=== PATIENT | female | born 1995 ===

== ENCOUNTER 2021-02-04 12:59 | Inpatient (IN) ==
[2021-02-04] MEDS ORDERED: LACTATED RINGERS 500 ML IV PRN (13:47)
[2021-02-04] MEDS: LACTATED RINGERS 1,000 ML IV SCH ×2 (13:48→19:53)
[2021-02-04 14:13] LABS: Basophils # 0.1 10*3/uL (0.0-0.2); Basophils % 0.4 % (0.0-0.8); Eosinophils # 0.1 10*3/uL (0.0-0.87); Eosinophils % 0.9 % (0.00-10.9); Hematocrit 34.5 VOL% (35.7-47.0); Hemoglobin 11.9 GM/DL (12.0-16.0); Immature Granulocytes % 0.8 %; Lymphocytes # 2.2 10*3/uL (1.4-4.0); Lymphocytes % 16.4 % (21.3-54.2); Mean Corpuscular HGB Conc 34.5 GM/DL (32-36); Mean Corpuscular Volume 92.5 FL (87-102); Mean Platelet Volume 10.6 FL (9.6-12.0); Monocytes % 6.6 % (1.7-12.7); Neutrophils % 74.9 % (38.7-73.9); Platelet Count 249 T/CUMM (130-400); Red Blood Count 3.73 MC/CUMM (3.8-5.5); Red Cell Distribution Width 12.7 % (9.3-17.3); White Blood Count 13.2 T/CUMM (4-12)
[2021-02-04 14:24] LABS: INR 0.9; PT Patient Result 9.9 SECS (9.8-11.9); Partial Thromboplastin Time 23.1 SECS (23.9-33.8)
[2021-02-04 14:38] LABS: Alanine Aminotransferase 15 U/L (13-56); Albumin 2.8 G/DL (3.4-5.0); Alkaline Phosphatase 191 U/L (45-117); Aspartate Amino Transferase 18 U/L (0-37); Bilirubin,Direct < 0.100 MG/DL (0.0-0.20); Bilirubin,Total < 0.39 MG/DL (0.2-1.0); Blood Urea Nitrogen 10 MG/DL (7-18); Calcium 9.5 MG/DL (8.5-10.1); Carbon Dioxide 23 MMOL/L (21-32); Estimated Glom Filtration Rate 112 ML/MIN; Glucose 85 MG/DL (74-106); Sodium 136 MMOL/L (136-145); Uric Acid 5.3 MG/DL (2.6-6.0)
[2021-02-04 17:00] LABS: Bacteria,Urine Occasional /HPF (Few); Bilirubin,Urine Negative (Negative); Blood, Urine Small mg/dL (Negative); Glucose,Urine (UA) Negative (Negative); Ketones,Urine Negative (Negative); Mucus,Urine Occasional /LPF (Occasional); Nitrite,Urine Negative (Negative); Protein,Urine Negative; Squamous Epithelial Cell,Urine Occasional /HPF (0-10); Urine Appearance CLEAR (Clear); Urine Color Colorless (Yellow); Urine Specific Gravity 1.004 (1.001-1.035); Urine Urobilinogen < 2.0 EU/DL (0.2-1.0)
[2021-02-04 18:36] LABS: Protein/Creatinine Ratio,Urine 0.3 RATIO
[2021-02-05] MEDS ORDERED: FAMOTIDINE 20 MG/2 ML VIAL IV ONE ×2 (00:25→09:12)
[2021-02-05] MEDS: ONDANSETRON 4 MG/2 ML VIAL IV PRN ×2 (00:45→12:37)
[2021-02-05] MEDS ORDERED: OXYTOCIN/LR 20 UNIT/1,000 ML BAG IV SCH (08:00)
[2021-02-05] MEDS ORDERED: OXYTOCIN/LR 20 UNIT/1,000 ML BAG IV ONE ×2 (09:01→16:27)
[2021-02-05] MEDS ORDERED: LACTATED RINGERS 250 ML IV PRN (09:12)
[2021-02-05] MEDS ORDERED: CITRIC ACID/SODIUM CITRATE 30 ML UDCUP PO ONE (09:12)
[2021-02-05] MEDS ORDERED: diphenhydrAMINE 50 MG/1 ML VIAL IV PRN ×2 (09:12)
[2021-02-05] MEDS ORDERED: ePHEDrine 50 MG/ML VIAL IV PRN (09:12)
[2021-02-05] MEDS ORDERED: NALOXONE 0.4 MG/ML VIAL IV PRN (09:12)
[2021-02-05] MEDS ORDERED: LACTATED RINGERS 1,000 ML IV ONE (09:12)
[2021-02-05] MEDS ORDERED: PROMETHAZINE 25 MG/1 ML VIAL IM ONE (09:12)
[2021-02-05] MEDS ORDERED: hydrOXYzine HCL 25 MG/1 ML VIAL IM PRN (09:12)
[2021-02-05] MEDS ORDERED: fentaNYL 2 MCG/ROPIV 0.2% EPID 100 ML EPIDURAL SCH (09:30)
[2021-02-05] MEDS ORDERED: LACTATED RINGERS 1,000 ML IV SCH (09:30)
[2021-02-05] MEDS ORDERED: METHYLERGONOVINE 0.2 MG/1 ML AMP ONE (13:54)
[2021-02-05] MEDS ORDERED: TRANEXAMIC ACID 1,000 MG/10 ML VIAL ONE (13:54)
[2021-02-05] MEDS ORDERED: CARBOPROST TROMETHAMINE 250 MCG/ML AMP IM ONE (13:54)
[2021-02-05] MEDS ORDERED: miSOPROStoL 200 MCG TABLET ONE (13:54)
[2021-02-05] MEDS ORDERED: LIDOCAINE 1% 50 ML VIAL ONE (15:33)
[2021-02-05 16:04] LABS: Cord Arterial Blood HCO3 20.7 MMOL/L
[2021-02-05 16:08] LABS: Cord Venous Blood HCO3 20.8 MMOL/L; Cord Venous Blood PCO2 46.2 MMHG; Cord Venous Blood PO2 17.5
[2021-02-05] MEDS ORDERED: LANOLIN 50% CREAM 0.3 OZ TUBE TOP PRN (16:27)
[2021-02-05] MEDS ORDERED: HYDROCORTISONE 2.5% RECTAL CREAM 30 GM TUBE TOP PRN (16:27)
[2021-02-05] MEDS ORDERED: DIPH/TET/ACEL PERT BOOSTER VACCINE 0.5 ML VIAL IM ONE (16:27)
[2021-02-05] MEDS ORDERED: ONDANSETRON 4 MG/2 ML VIAL IV PRN (16:27)
[2021-02-05] MEDS ORDERED: ACETAMINOPHEN 325 MG TABLET PO PRN (16:27)
[2021-02-05] MEDS ORDERED: oxyCODONE/ACETAMINOPHEN 5-325 MG TABLET PO PRN (16:27)
[2021-02-05] MEDS ORDERED: BISACODYL 10 MG SUPP RECTAL PRN (16:27)
[2021-02-05] MEDS ORDERED: RHO(D) IMMUNE GLOBULIN 300 MCG SYRINGE IM ONE (16:27)
[2021-02-05] MEDS ORDERED: WITCH HAZEL PADS 100/JAR TOP PRN (16:27)
[2021-02-05] MEDS ORDERED: MEASLES/MUMPS/RUBELLA VACCINE 0.5 ML VIAL SUBCUT ONE (16:27)
[2021-02-05] MEDS ORDERED: BENZOCAINE 20%/MENTHOL 0.5% SPRAY 56 GM CAN TOP PRN (16:27)
[2021-02-05] MEDS: IBUPROFEN 800 MG TABLET PO PRN (17:05)
[2021-02-05] MEDS: DOCUSATE SODIUM 100 MG CAPSULE PO SCH (21:13)
[2021-02-06] MEDS: IBUPROFEN 800 MG TABLET PO PRN (06:42)
[2021-02-06 06:52] LABS: Basophils % 0.2 % (0.0-0.8); Eosinophils # 0.1 10*3/uL (0.0-0.87); Eosinophils % 0.7 % (0.00-10.9); Hematocrit 31.1 VOL% (35.7-47.0); Hemoglobin 10.5 GM/DL (12.0-16.0); Immature Granulocytes % 0.9 %; Immature Granulocytes Absolute 0.14 #; Lymphocytes % 18.2 % (21.3-54.2); Mean Corpuscular HGB Conc 33.8 GM/DL (32-36); Mean Platelet Volume 10.6 FL (9.6-12.0); Monocytes % 6.1 % (1.7-12.7); Neutrophils % 73.9 % (38.7-73.9); Platelet Count 209 T/CUMM (130-400); Red Blood Count 3.31 MC/CUMM (3.8-5.5); Red Cell Distribution Width 12.5 % (9.3-17.3); White Blood Count 16.4 T/CUMM (4-12)
[2021-02-06] MEDS: DOCUSATE SODIUM 100 MG CAPSULE PO SCH ×3 (09:59→23:02)
[2021-02-06] MEDS: oxyCODONE/ACETAMINOPHEN 5-325 MG TABLET PO PRN ×2 (10:03→19:55)
[2021-02-06] MEDS: FEXOFENADINE 180 MG TABLET PO SCH (14:14)
[2021-02-06] MEDS: valACYclovir 500 MG TABLET PO SCH (23:01)
[2021-02-07] MEDS: DOCUSATE SODIUM 100 MG CAPSULE PO SCH (07:45)
[2021-02-07] MEDS: IBUPROFEN 800 MG TABLET PO PRN (07:45)
[2021-02-07 08:06] VITALS: BP 105/60
[2021-02-07] MEDS: FEXOFENADINE 180 MG TABLET PO SCH (08:15)
[2021-02-07] MEDS: valACYclovir 500 MG TABLET PO SCH (08:16)
== END 2021-02-07 12:35 | disposition home or self-care (01) | DRG 806 ==
LOC: N.LD 12:59 → N.OB 02-05 20:35
PROVIDERS: ADMIT Obstetrics & Gynecology; ATTEND Obstetrics & Gynecology